=== PATIENT | female | born 2000 | race American Indian/Alaskan Native ===

== ENCOUNTER 2019-11-03 16:21 | Emergency (ER) | payer SELFPAY ==
[2019-11-03 17:59] VITALS: BP 111/77
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
[2019-11-03 20:50] LABS: Bilirubin,Urine NEG (Negative); Blood,Urine NEG (Negative); Color,Urine Yellow (Yellow); Mucus,Urine 3+ /HPF; Protein,Urine <15 mg/dL mg/dL (Negative); Urobilinogen,Urine < 2.0 mg/dL (<2.0)
[2019-11-03 20:52] LABS: HCG Qualitative,Urine Negative (Negative)
== END 2019-11-03 22:20 | disposition other institution (70) ==
LOC: ED 16:21
DX: Z53.21 Procedure and treatment not carried out due to patient leaving prior to being seen by health care provider (principal)
CPT/HCPCS: 81001; 81025